=== PATIENT | male | born 1960 | race Caucasian/White ===

== ENCOUNTER 2019-12-30 16:15 | Emergency (ER) | payer MEDICAID, OTHER ==
[~2019-12-30] VITALS: Ht 180.3 cm; Wt 113.4 kg
[2019-12-30 18:39] VITALS: BP 127/79
[2019-12-30 19:25] LABS: Urine Bacteria NONE SEEN /hpf (None Seen); Urine Blood Negative /uL (Negative); Urine Mucus FEW (None Seen); Urine Specific Gravity 1.028 (1.001-1.035); Urine Sperm PRESENT /hpf (None Seen); Urine WBC <1 /hpf (0 - 3)
[2019-12-30 19:38] LABS: Basophils # (auto) 0 uL; Basophils % (auto) 0.3 % (0.0-2.0); Eosinophils # (auto) 0.1 uL; Eosinophils % (auto) 0.6 % (0.0-7.0); Hematocrit 43.9 % (41.0-53.0); Hemoglobin 14.9 g/dL (13.5-17.5); Lymphocytes # (auto) 1.7 uL; Lymphocytes % (auto) 12.8 % (10.0-50.0); Mean Corpuscular Hemoglobin 27.8 pg (28.0-32.0); Mean Corpuscular Hgb Conc. 33.9 g/dL (32.0-36.0); Mean Corpuscular Volume 82.2 fL (80.0-100.0); Monocytes # (auto) 1.5 uL; Monocytes % (auto) 11.3 % (0.0-12.0); Nucleated Red Blood Cells % 0.1 %; Platelet Count (auto) 389 10^3/uL (140-450); Red Blood Cells 5.35 10^6/uL (4.5-5.90); Red Cell Distribution Width 14.3 % (11.8-14.3); White Blood Cell 13.3 10^3/uL (4.4-10.8)
[2019-12-30] MEDS ORDERED: ONDANSETRON ODT 4 MG TAB PO ONE (19:45)
[2019-12-30] MEDS ORDERED: HYDROcodone-ACET 5/325MG TAB PO ONE (19:45)
[2019-12-30 20:03] LABS: Albumin 3.6 g/dL (3.4-5.0); Calcium 9.6 mg/dL (8.5-10.1)
[2019-12-30 20:06] LABS: BUN/Creatinine Ratio 17.5; Bilirubin, Total 0.7 mg/dL (0.2-1.0); Total Protein 8.9 g/dL (6.4-8.2); Uric Acid 9.4 mg/dL (3.5-7.2)
== END 2019-12-30 20:19 | disposition home or self-care (01) ==
LOC: ER 16:28
DX: S83.242A Other tear of medial meniscus, current injury, left knee, initial encounter (principal); S83.241A Other tear of medial meniscus, current injury, right knee, initial encounter; M10.9 Gout, unspecified; M54.42 Lumbago with sciatica, left side; M54.41 Lumbago with sciatica, right side; X58.XXXA Exposure to other specified factors, initial encounter; Y93.89 Activity, other specified; Y92.89 Other specified places as the place of occurrence of the external cause; Y99.8 Other external cause status
CPT/HCPCS: 36415; 80053; 81001; 84550; 85025; 99283; Q0162

== ENCOUNTER 2020-02-23 11:24 | Emergency (ER) | payer MEDICAID, OTHER ==
[~2020-02-23] VITALS: Ht 180.3 cm; Wt 108.9 kg
[2020-02-23 11:28] VITALS: BP 131/94
[2020-02-23] MEDS ORDERED: HYDROcodone-ACET 7.5/325MG TAB PO ONE (12:00)
== END 2020-02-23 13:16 | disposition home or self-care (01) ==
LOC: ER 11:24
DX: S16.1XXA Strain of muscle, fascia and tendon at neck level, initial encounter (principal); S39.012A Strain of muscle, fascia and tendon of lower back, initial encounter; V43.62XA Car passenger injured in collision with other type car in traffic accident, initial encounter; Y93.89 Activity, other specified; Y92.410 Unspecified street and highway as the place of occurrence of the external cause; Y99.8 Other external cause status
CPT/HCPCS: 72040; 72100

== ENCOUNTER 2023-12-16 17:59 | Inpatient (IN) | payer MEDICAID ==
[~2023-12-16] VITALS: Ht 182.9 cm; Wt 130.0 kg
[2023-12-16] MEDS ORDERED: LORazepam 2MG/ML-1ML VIAL IV ONE (18:15)
[2023-12-16] MEDS ORDERED: ONDANSETRON HCL 4 MG/2 ML VIAL IV ONE (18:15)
[2023-12-16 18:20] VITALS: PULSE 71; RESP 18; O2SAT 99
[2023-12-16] MEDS ORDERED: SODIUM CHLORIDE 0.9% 1,000 ML IV ONE ×3 (18:30→19:45)
[2023-12-16] MEDS ORDERED: NOREPINEPHRINE 8 MG/250ML KIT 250 ML IV ONE (18:50)
[2023-12-16] MEDS: NOREPINEPHRINE 8 MG/250ML KIT 250 ML IV SCH (18:56)
[2023-12-16] MEDS ORDERED: LIDOCAINE 4MG/ML IV SOLN 500 ML IV SCH (19:00)
[2023-12-16 19:04] LABS: Basophils # (auto) 0.1 10 ^3/uL (0-0.2); Basophils % (auto) 1.1 % (0.0-2.0); Eosinophils # (auto) 0.3 10 ^3/uL (0-0.8); Eosinophils % (auto) 2.7 % (0.0-7.0); Hematocrit 50.4 % (41.0-53.0); Hemoglobin 16.9 g/dL (13.5-17.5); Lymphocytes # (auto) 2.6 10 ^3/uL (0.4-5.4); Lymphocytes % (auto) 26.8 % (10.0-50.0); Mean Corpuscular Hemoglobin 28.4 pg (28.0-32.0); Mean Corpuscular Hgb Conc. 33.5 g/dL (32.0-36.0); Mean Corpuscular Volume 84.7 fL (80.0-100.0); Monocytes % (auto) 10.5 % (0.0-12.0); Neutrophils # (auto) 5.7 10 ^3/uL (1.6-8.6); Neutrophils % (auto) 58.9 % (37.0-80.0); Nucleated Red Blood Cells % 0.3 %; Red Blood Cells 5.95 10^6/uL (4.5-5.90); Red Cell Distribution Width 13.8 % (11.8-14.3); White Blood Cell 9.7 10^3/uL (4.4-10.8)
[2023-12-16 19:11] LABS: Alanine Aminotransferase 32 U/L (7-40); Albumin 4.4 g/dL (3.2-4.8); Alkaline Phosphatase 67 U/L (46-116); Anion Gap 9 (5-15); Aspartate Aminotransferase 33 U/L (13-40); BUN/Creatinine Ratio 11.7 (10.0-20.0); Blood Urea Nitrogen 14 mg/dL (9-23); Calcium 9.9 mg/dL (8.5-10.1); Carbon Dioxide 22 mmol/L (20-30); Chloride 108 mmol/L (98-107); Glucose 99 mg/dL (74-106); Potassium 4.6 mmol/L (3.5-5.1); Sodium 139 mmol/L (136-145)
[2023-12-16 19:12] LABS: Bilirubin, Total 0.7 mg/dL (0.2-1.0); Total Protein 6.6 g/dL (5.7-8.2)
[2023-12-16 19:18] LABS: INR 1.06 (0.9-1.15); Prothrombin Time 11.1 sec (9.3-11.8)
[2023-12-16 19:21] LABS: Lactic Acid w/Reflex 3.8 mmol/L (0.4-2.0)
[2023-12-16 19:23] LABS: Lipase 28 U/L (12-53)
[2023-12-16] MEDS ORDERED: ENOXAPARIN SOD 120 MG/0.8 ML SYRINGE SC ONE (19:45)
[2023-12-16] MEDS ORDERED: NITROGLYCERIN 0.4 MG SL TAB SL PRN (20:30)
[2023-12-16] MEDS ORDERED: ONDANSETRON HCL 4 MG/2 ML VIAL IV PRN (20:30)
[2023-12-16] MEDS ORDERED: MORPHINE SULFATE INJ 2 MG/ml SYRG IV PRN (20:30)
[2023-12-16] MEDS ORDERED: ALBUTEROL SULF 2.5 MG/0.5ML(0.5%) NEB SOLN NEB ONE (21:30)
[2023-12-16] MEDS ORDERED: AMIODARONE BOLUS KIT 100 ML IV ONE (21:30)
[2023-12-16] MEDS ORDERED: AMIODARONE 450mg/250ml AE 250 ML IV SCH (21:45)
[2023-12-16] MEDS ORDERED: LEVALBUTEROL HCL 1.25 MG/3 ML NEB ONE (21:53)
[2023-12-16 22:00] VITALS: PULSE 148; RESP 35; O2SAT 89
[2023-12-16] MEDS ORDERED: ATORVASTATIN 20 MG TAB PO SCH (22:00)
[2023-12-16] MEDS ORDERED: LEVALBUTEROL HCL 1.25 MG/3 ML NEB NEB ONE (22:30)
[2023-12-16] MEDS ORDERED: dilTIAZem 25 MG/5 ML VIAL IV ONE (22:30)
[2023-12-16 22:53] LABS: Base Excess -13.3 mmol/L (-2.0-2.0)
[2023-12-16] MEDS ORDERED: METOPROLOL TARTRATE 1MG/1ML-5ML VIAL IV ONE (23:00)
[2023-12-16] MEDS ORDERED: LIDOCAINE HCL 100 MG/5ML (2%) SYRG INJ IV ONE (23:00)
[2023-12-16] MEDS: MAGNESIUM SULFATE 1GM/100ML 100 ML IV SCH (23:15)
[2023-12-17] VITALS (55 sets, daily range): BP systolic 31–173; BP diastolic 24–86; PULSE 98–149; RESP 16–29; TEMP 98.8–103.5; O2SAT 49–100
[2023-12-17] MEDS ORDERED: ETOMIDATE (2MG/ML) 20ML VIAL IV ONE ×2 (00:01)
[2023-12-17] MEDS ORDERED: SUCCINYLCHOLINE CHLORIDE 20 MG/ML 10ML VIAL IV ONE ×2 (00:01)
[2023-12-17] MEDS ORDERED: IOHEXOL 350 MG/ML 100ML IJ ONE (00:06)
[2023-12-17 00:10] LABS: COVID19 ANTIGEN SOFIA FIA NEGATIVE (NEGATIVE); Rapid Influenza A Negative (Negative); Rapid Influenza B Negative (Negative)
[2023-12-17] MEDS ORDERED: MIDAZOLAM DRIP 50 mg/50mL 50 ML IV ONE ×2 (00:13→15:06)
[2023-12-17] MEDS: MIDAZOLAM DRIP 50 mg/50mL 50 ML IV SCH ×2 (00:15→15:55)
[2023-12-17] MEDS: MAGNESIUM SULFATE 1GM/100ML 100 ML IV SCH (00:36)
[2023-12-17] MEDS ORDERED: VASOPRESSIN 20 UNIT/ML ONE (00:51)
[2023-12-17] MEDS ORDERED: fentaNYL Drip 2500mCg/250mlNS 250 ML IV ONE (00:53)
[2023-12-17] MEDS: fentaNYL Drip 2500mCg/250mlNS 250 ML IV SCH ×2 (00:57→15:55)
[2023-12-17] MEDS: cefTRIAXone 1GM/50ML D5W 50 ML IV SCH ×2 (01:16→10:48)
[2023-12-17 01:29] LABS: Urine Bacteria NONE SEEN /hpf (None Seen); Urine Blood Negative /uL (Negative); Urine Clarity Clear (Clear); Urine Color Yellow (Yellow); Urine Hyaline Cast FEW /lpf (0 - 2); Urine Protein, UAD 1+ (Negative); Urine Specific Gravity 1.041 (1.001-1.035); Urine Urobilinogen Normal (Negative); Urine WBC 2 /hpf (0 - 3); Urine pH 7.5 (5.0-8.0)
[2023-12-17 01:40] LABS: Amphetamine Screen, Urine Neg (NEGATIVE); Barbiturate Scree,Urine Neg (NEGATIVE); Benzodiazephine Screen, Urine Neg (NEGATIVE); Cannabinoid Screen, Urine Pos (NEGATIVE); Cocaine Screen, Urine Neg (NEGATIVE); Opiate Scree,Urine Neg (NEGATIVE); Phencyclidine Screen, Urine Neg (NEGATIVE)
[2023-12-17] MEDS ORDERED: FUROSEMIDE 40 MG/4 ML VIAL IV ONE (01:45)
[2023-12-17 02:53] LABS: Base Excess -16.8 mmol/L (-2.0-2.0)
[2023-12-17] MEDS ORDERED: EPINEPHrine HCL 250 ML IV ONE ×2 (03:49→12:33)
[2023-12-17] MEDS: AMIODARONE 450mg/250ml AE 250 ML IV SCH ×2 (04:12→17:30)
[2023-12-17] MEDS: VASOPRESSIN 20 UNITS in SODIUM CHL 0.9% 99 ML IV SCH ×3 (04:13→18:01)
[2023-12-17] MEDS ORDERED: EPINEPHrine HCL 250 ML IV SCH (04:15)
[2023-12-17 04:25] LABS: Base Excess -14.3 mmol/L (-2.0-2.0)
[2023-12-17] MEDS ORDERED: SODIUM BICARBONATE 8.4 % INJ 50ML VIAL IV ONE ×9 (04:30→19:36)
[2023-12-17 05:22] LABS: Basophils # (auto) 0.1 10 ^3/uL (0-0.2); Basophils % (auto) 0.5 % (0.0-2.0); Eosinophils # (auto) 0.1 10 ^3/uL (0-0.8); Eosinophils % (auto) 0.4 % (0.0-7.0); Hematocrit 52.4 % (41.0-53.0); Hemoglobin 16.9 g/dL (13.5-17.5); Lymphocytes # (auto) 1.7 10 ^3/uL (0.4-5.4); Lymphocytes % (auto) 7.5 % (10.0-50.0); Mean Corpuscular Hemoglobin 28.3 pg (28.0-32.0); Mean Corpuscular Hgb Conc. 32.2 g/dL (32.0-36.0); Mean Corpuscular Volume 87.9 fL (80.0-100.0); Monocytes % (auto) 8.4 % (0.0-12.0); Neutrophils # (auto) 19.3 10 ^3/uL (1.6-8.6); Neutrophils % (auto) 83.2 % (37.0-80.0); Nucleated Red Blood Cells % 0.2 %; Red Blood Cells 5.97 10^6/uL (4.5-5.90); Red Cell Distribution Width 14.4 % (11.8-14.3); White Blood Cell 23.2 10^3/uL (4.4-10.8)
[2023-12-17 05:49] LABS: Albumin 3.7 g/dL (3.2-4.8); Alkaline Phosphatase 69 U/L (46-116); Anion Gap 15 (5-15); BUN/Creatinine Ratio 7.5 (10.0-20.0); Blood Urea Nitrogen 18 mg/dL (9-23); Calcium 8.8 mg/dL (8.5-10.1); Carbon Dioxide 21 mmol/L (20-30); Chloride 105 mmol/L (98-107); Potassium 3.8 mmol/L (3.5-5.1); Sodium 141 mmol/L (136-145)
[2023-12-17 05:50] LABS: Bilirubin, Total 0.8 mg/dL (0.2-1.0); Total Protein 6.3 g/dL (5.7-8.2)
[2023-12-17 06:00] LABS: Aspartate Aminotransferase 1596 U/L (13-40)
[2023-12-17 06:31] LABS: Alanine Aminotransferase 1703 U/L (7-40); Glucose 307 mg/dL (74-106)
[2023-12-17] MEDS: SODIUM BICARBONATE 50ML VIAL 100 ML in SOD CHL 0.45% 1,000 ML IV SCH ×2 (06:33→19:55)
[2023-12-17] MEDS ORDERED: VANCOMYCIN PER PHARMACY 0 MG IV SCH (06:45)
[2023-12-17] MEDS ORDERED: VANCOMYCIN 1GM/200ML 200 ML IV SCH (07:00)
[2023-12-17] MEDS ORDERED: FUROSEMIDE 20 MG/2 ML VIAL IV SCH (07:00)
[2023-12-17] MEDS ORDERED: ACETAMINOPHEN 650 MG RECT SUPP PR PRN (08:30)
[2023-12-17] MEDS: DOBUTamine 1000MCG/ML 250 ML IV SCH ×3 (08:50→22:38)
[2023-12-17] MEDS ORDERED: AZITHROMYCIN 500MG/ 250ML 250 ML IV SCH (10:00)
[2023-12-17] MEDS ORDERED: ENOXAPARIN SOD 40 MG/0.4 ML SYRINGE SC SCH (10:00)
[2023-12-17] MEDS ORDERED: ASPirin 81 mg TAB PO SCH (10:00)
[2023-12-17] MEDS ORDERED: HEPARIN DRIP/D5W 100UNITS/ML 250 ML IV SCH ×2 (11:00→14:30)
[2023-12-17] MEDS ORDERED: HEPARIN SODIUM (PORCINE) 5000 UNITS/ML 1ML VIAL IV ONE ×3 (11:00→18:15)
[2023-12-17] MEDS ORDERED: ASPirin 81 mg TAB PO ONE (11:00)
[2023-12-17] MEDS ORDERED: BUMETANIDE 2.5mg/10ml (0.25 mg/ml) INJ IV ONE (11:15)
[2023-12-17 11:24] LABS: Base Excess -10.2 mmol/L (-2.0-2.0)
[2023-12-17] MEDS ORDERED: DEXTROSE (50%) 50ML SYRG IV PRN (11:30)
[2023-12-17 11:46] LABS: Basophils # (auto) 0.1 10 ^3/uL (0-0.2); Basophils % (auto) 0.7 % (0.0-2.0); Eosinophils # (auto) 0 10 ^3/uL (0-0.8); Hematocrit 50.5 % (41.0-53.0); Hemoglobin 16.4 g/dL (13.5-17.5); Lymphocytes # (auto) 1.2 10 ^3/uL (0.4-5.4); Lymphocytes % (auto) 7.3 % (10.0-50.0); Mean Corpuscular Hemoglobin 28.5 pg (28.0-32.0); Mean Corpuscular Hgb Conc. 32.4 g/dL (32.0-36.0); Mean Corpuscular Volume 87.9 fL (80.0-100.0); Monocytes # (auto) 0.9 10 ^3/uL (0-1.3); Monocytes % (auto) 5.4 % (0.0-12.0); Neutrophils # (auto) 14.5 10 ^3/uL (1.6-8.6); Neutrophils % (auto) 86.6 % (37.0-80.0); Nucleated Red Blood Cells % 0.1 %; Red Blood Cells 5.75 10^6/uL (4.5-5.90); Red Cell Distribution Width 14.2 % (11.8-14.3); White Blood Cell 16.8 10^3/uL (4.4-10.8)
[2023-12-17] MEDS: PHENYLEPHRINE INJ 80 MG in SODIUM CHL 0.9% 242 ML IV SCH (11:53)
[2023-12-17] MEDS ORDERED: IODIXANOL 320MG/ML 100ML BTL IV ONE ×3 (11:59→13:47)
[2023-12-17] MEDS ORDERED: LIDOCAINE 2%HCL (LOCAL ANESTH.) INJ 20ML MDV ONE (11:59)
[2023-12-17 12:00] LABS: INR 1.22 (0.9-1.15); Partial Thromboplastin Time 38.9 SEC (24.5-34.5); Prothrombin Time 12.6 sec (9.3-11.8)
[2023-12-17] MEDS ORDERED: SODIUM CHL 0.9% 50 ML ONE ×2 (12:17→13:09)
[2023-12-17] MEDS ORDERED: ANGIOMAX 250 MG VIAL IV ONE ×2 (12:17→13:09)
[2023-12-17 12:38] LABS: Triglycerides 589 mg/dL (< 150)
[2023-12-17 12:40] LABS: Cholesterol 263 mg/dL (< 200); HDL Cholesterol 24 mg/dL (40-59)
[2023-12-17 12:43] LABS: Base Excess -10.6 mmol/L (-2.0-2.0)
[2023-12-17] MEDS ORDERED: D5W 5% 250 ML IV ONE (12:43)
[2023-12-17 13:32] LABS: Magnesium 2.7 mg/dL (1.6-2.6)
[2023-12-17] MEDS ORDERED: DOBUTamine 1000MCG/ML 250 ML IV ONE ×2 (13:45→15:06)
[2023-12-17] MEDS ORDERED: AMIODARONE HCL (50 MG/ ML) 3 ML VIAL IV ONE (13:57)
[2023-12-17] MEDS ORDERED: ASPirin 325 MG TAB ONE (14:16)
[2023-12-17] MEDS ORDERED: CLOPIDOGREL 300 MG TAB ONE (14:16)
[2023-12-17] MEDS ORDERED: NOREPINEPHRINE 8 MG/250ML KIT 250 ML IV ONE (15:08)
[2023-12-17] MEDS: NOREPINEPHRINE 8 MG/250ML KIT 250 ML IV SCH (15:59)
[2023-12-17 16:05] LABS: Basophils # (auto) 0.1 10 ^3/uL (0-0.2); Basophils % (auto) 0.5 % (0.0-2.0); Eosinophils # (auto) 0 10 ^3/uL (0-0.8); Hematocrit 45.2 % (41.0-53.0); Hemoglobin 14.9 g/dL (13.5-17.5); Lymphocytes # (auto) 1.2 10 ^3/uL (0.4-5.4); Lymphocytes % (auto) 7.3 % (10.0-50.0); Mean Corpuscular Hemoglobin 28.4 pg (28.0-32.0); Mean Corpuscular Hgb Conc. 32.9 g/dL (32.0-36.0); Mean Corpuscular Volume 86.4 fL (80.0-100.0); Monocytes # (auto) 0.8 10 ^3/uL (0-1.3); Monocytes % (auto) 5.2 % (0.0-12.0); Neutrophils # (auto) 13.9 10 ^3/uL (1.6-8.6); Red Blood Cells 5.23 10^6/uL (4.5-5.90); Red Cell Distribution Width 14.2 % (11.8-14.3)
[2023-12-17] MEDS ORDERED: SODIUM BICARBONATE 50ML VIAL 50 ML in D5W 5% 1,000 ML IV SCH (16:15)
[2023-12-17 16:28] LABS: INR 1.96 (0.9-1.15); Prothrombin Time 19.7 sec (9.3-11.8)
[2023-12-17] MEDS: NOREPINEPHRINE BITARTRATE 32 MG in SODIUM CHL 0.9% 218 ML IV SCH (16:30)
[2023-12-17 16:32] LABS: Partial Thromboplastin Time 82.6 SEC (24.5-34.5)
[2023-12-17 16:37] LABS: Chloride 102 mmol/L (98-107); Sodium 138 mmol/L (136-145)
[2023-12-17 16:39] LABS: Anion Gap 15 (5-15); Carbon Dioxide 21 mmol/L (20-30)
[2023-12-17 16:40] LABS: Calcium 7.2 mg/dL (8.7-10.4)
[2023-12-17 16:45] LABS: Alkaline Phosphatase 48 U/L (46-116)
[2023-12-17 16:47] LABS: Albumin 3.2 g/dL (3.2-4.8); Aspartate Aminotransferase 5521 U/L (13-40); Bilirubin, Total 0.8 mg/dL (0.2-1.0); Total Protein 5.4 g/dL (5.7-8.2)
[2023-12-17 16:52] LABS: BUN/Creatinine Ratio 9.2 (10.0-20.0); Blood Urea Nitrogen 27 mg/dL (9-23); Potassium 3.3 mmol/L (3.5-5.1)
[2023-12-17 16:57] LABS: Glucose 414 mg/dL (74-106)
[2023-12-17] MEDS ORDERED: POTASSIUM CHL 20MEQ/100ML 100 ML IV ONE (17:15)
[2023-12-17 17:18] LABS: Alanine Aminotransferase 2507 U/L (7-40)
[2023-12-17 18:10] LABS: Base Excess -6.9 mmol/L (-2.0-2.0)
[2023-12-17] MEDS: FUROSEMIDE INJECTION 100 MG in SODIUM CHL 0.9% 100 ML IV SCH ×2 (18:23→23:37)
[2023-12-17] MEDS: ACCU-CHEK COMFORT CURVE STRIP VI SCH (18:23)
[2023-12-17] MEDS: InsuLIN REG 1unit/0.01ml Soln (100units/ml) SC SCH (18:24)
[2023-12-17] MEDS: EPINEPHrine HCL 250 ML IV SCH (18:30)
[2023-12-17 18:32] LABS: T3 Total 0.61 ng/mL (0.60-1.81)
[2023-12-17 18:45] LABS: Free T4 (Free Thyroxine) 0.69 ng/dL (0.89-1.76)
[2023-12-17] MEDS ORDERED: ACETAMINOPHEN 325 MG TAB PO PRN (18:45)
[2023-12-17] MEDS: DOPamine 3200MCG/ML 250 ML IV SCH (19:46)
[2023-12-17] MEDS ORDERED: D5W IV SCH (20:45)
[2023-12-17] MEDS ORDERED: SODIUM BICARBONATE IV SCH (20:45)
[2023-12-17] MEDS ORDERED: IBUPROFEN 100MG/5ML ORAL SUSP 100 MG/5 ML UD GT ONE (22:00)
[2023-12-17] MEDS ORDERED: ATORVASTATIN 20 MG TAB PO SCH (22:00)
[2023-12-17] MEDS ORDERED: IBUPROFEN 800 MG TAB PO ONE (22:03)
[2023-12-17] MEDS: DOXYCYCLINE 100MG/250ML 250 ML IV SCH (22:43)
[2023-12-18] VITALS (113 sets, daily range): BP systolic 31–98; BP diastolic 21–93; PULSE 55–140; RESP 16–29; TEMP 101.4–103.6; O2SAT 79–100
[2023-12-18] MEDS ORDERED: VANCOMYCIN 1GM/200ML 200 ML IV ONE
[2023-12-18 01:04] LABS: Base Excess -2.7 mmol/L (-2.0-2.0)
[2023-12-18 01:09] LABS: Anion Gap 15 (5-15); Carbon Dioxide 24 mmol/L (20-30); Chloride 101 mmol/L (98-107); Sodium 140 mmol/L (136-145)
[2023-12-18 01:10] LABS: Calcium 7.9 mg/dL (8.7-10.4)
[2023-12-18 01:14] LABS: INR 1.33 (0.9-1.15); Partial Thromboplastin Time 57.2 SEC (24.5-34.5); Prothrombin Time 13.7 sec (9.3-11.8)
[2023-12-18 01:15] LABS: Glucose 363 mg/dL (74-106); Magnesium 2.2 mg/dL (1.6-2.6)
[2023-12-18] MEDS: EPINEPHrine HCL 250 ML IV SCH ×3 (01:29→20:11)
[2023-12-18 01:30] LABS: BUN/Creatinine Ratio 6.1 (10.0-20.0); Blood Urea Nitrogen 23 mg/dL (9-23)
[2023-12-18] MEDS: ACCU-CHEK COMFORT CURVE STRIP VI SCH ×8 (01:35→23:58)
[2023-12-18] MEDS: InsuLIN REG 1unit/0.01ml Soln (100units/ml) SC SCH ×5 (01:37→20:20)
[2023-12-18] MEDS ORDERED: ALBUMIN 5% 250 ML IV ONE (02:30)
[2023-12-18] MEDS: PHENYLEPHRINE INJ 80 MG in SODIUM CHL 0.9% 242 ML IV SCH ×4 (02:33→23:28)
[2023-12-18] MEDS: DOBUTamine 1000MCG/ML 250 ML IV SCH ×4 (03:25→18:26)
[2023-12-18] MEDS: VASOPRESSIN 20 UNITS in SODIUM CHL 0.9% 99 ML IV SCH (03:25)
[2023-12-18] MEDS: MIDAZOLAM DRIP 50 mg/50mL 50 ML IV SCH ×5 (03:25→22:13)
[2023-12-18 04:40] LABS: Hematocrit 44.3 % (41.0-53.0); Hemoglobin 14.7 g/dL (13.5-17.5); Mean Corpuscular Hemoglobin 28.4 pg (28.0-32.0); Mean Corpuscular Hgb Conc. 33.3 g/dL (32.0-36.0); Mean Corpuscular Volume 85.3 fL (80.0-100.0); Red Blood Cells 5.19 10^6/uL (4.5-5.90); Red Cell Distribution Width 14.1 % (11.8-14.3); White Blood Cell 17.5 10^3/uL (4.4-10.8)
[2023-12-18 04:42] LABS: Basophils % (manual) 0 (0.0-2.0); Blast Cells 0; Eosinophils % (manual) 0 (0-7); Promyelocytes % 0; Reactive Lymphocytes 0
[2023-12-18 04:57] LABS: Band Neutrophils % (manual) 12; Lymphocytes % (manual) 6 (10.0-50.0); Metamyelocytes % 2; Monocytes % (manual) 7 (0-12); Myelocytes % 2; Platelet Estimate Adequate
[2023-12-18 06:10] LABS: Chloride 100 mmol/L (98-107)
[2023-12-18 06:13] LABS: Anion Gap 15 (5-15); Calcium 7.1 mg/dL (8.7-10.4); Carbon Dioxide 19 mmol/L (20-30)
[2023-12-18 06:18] LABS: Alkaline Phosphatase 36 U/L (46-116); Magnesium 2.1 mg/dL (1.6-2.6)
[2023-12-18 06:20] LABS: Bilirubin, Total 3.5 mg/dL (0.2-1.0); Total Protein 5.7 g/dL (5.7-8.2)
[2023-12-18 06:21] LABS: Albumin 3.5 g/dL (3.2-4.8); BUN/Creatinine Ratio 6.9 (10.0-20.0); Blood Urea Nitrogen 31 mg/dL (9-23)
[2023-12-18 06:22] LABS: Alanine Aminotransferase 2745 U/L (7-40); Aspartate Aminotransferase > 6000 U/L (13-40); Sodium 134 mmol/L (136-145)
[2023-12-18 06:25] LABS: Glucose 403 mg/dL (74-106)
[2023-12-18 06:26] LABS: Potassium 4.2 mmol/L (3.5-5.1)
[2023-12-18] MEDS: FUROSEMIDE INJECTION 100 MG in SODIUM CHL 0.9% 100 ML IV SCH ×3 (06:33→21:12)
[2023-12-18] MEDS: DOPamine 3200MCG/ML 250 ML IV SCH ×2 (06:38→18:03)
[2023-12-18] MEDS: fentaNYL Drip 2500mCg/250mlNS 250 ML IV SCH (06:44)
[2023-12-18] MEDS ORDERED: IBUPROFEN 600 MG TAB PO ONE (06:45)
[2023-12-18] MEDS: AMIODARONE 450mg/250ml AE 250 ML IV SCH (08:06)
[2023-12-18] MEDS: cefTRIAXone 1GM/50ML D5W 50 ML IV SCH (08:06)
[2023-12-18 08:19] LABS: INR 1.53 (0.9-1.15); Partial Thromboplastin Time 49.1 SEC (24.5-34.5); Prothrombin Time 15.6 sec (9.3-11.8)
[2023-12-18] MEDS ORDERED: DEXTROSE (50%) 50ML SYRG IV PRN ×2 (09:00→17:45)
[2023-12-18] MEDS: HEPARIN DRIP/D5W 100UNITS/ML 250 ML IV SCH ×2 (09:00→22:54)
[2023-12-18] MEDS: NOREPINEPHRINE BITARTRATE 32 MG in SODIUM CHL 0.9% 218 ML IV SCH (09:17)
[2023-12-18] MEDS: ASPirin 81 mg TAB PO SCH (09:48)
[2023-12-18] MEDS: CLOPIDOGREL BISULFATE 75 MG TAB PO SCH (09:48)
[2023-12-18 10:02] LABS: Lactic Acid w/Reflex 5.6 mmol/L (0.4-2.0)
[2023-12-18] MEDS: DOXYCYCLINE 100MG/250ML 250 ML IV SCH (12:04)
[2023-12-18] MEDS: PANTOPRAZOLE 40 MG/10 ML VIAL INJ IV SCH (12:11)
[2023-12-18 17:03] LABS: INR 1.86 (0.9-1.15); Partial Thromboplastin Time 62.6 SEC (24.5-34.5); Prothrombin Time 18.8 sec (9.3-11.8)
[2023-12-18] MEDS ORDERED: SODIUM BICARBONATE 8.4% INJ 50ML SYRINGE IV ONE ×2 (21:38)
[2023-12-18] MEDS ORDERED: LIDOCAINE 4MG/ML IV SOLN 500ML BAG IV ONE (21:38)
[2023-12-18 22:39] LABS: Base Excess -9.3 mmol/L (-2.0-2.0)
[2023-12-18] MEDS ORDERED: DOPamine 1600MCG/ML D5W 250 ML IV ONE (22:41)
[2023-12-18] MEDS: DOPamine 1600MCG/ML D5W 250 ML IV SCH (22:53)
[2023-12-18 23:00] LABS: INR 2.02 (0.9-1.15); Partial Thromboplastin Time 63.2 SEC (24.5-34.5); Prothrombin Time 20.3 sec (9.3-11.8)
[2023-12-19] VITALS (72 sets, daily range): BP systolic 36–79; BP diastolic 15–71; PULSE 42–71; RESP 0–28; TEMP 101.7–102.8; O2SAT 86–100
[2023-12-19] MEDS: InsuLIN REG 1unit/0.01ml Soln (100units/ml) SC SCH ×4 (00:01→12:27)
[2023-12-19] MEDS: DOXYCYCLINE 100MG/250ML 250 ML IV SCH ×2 (00:04→12:05)
[2023-12-19] MEDS ORDERED: SODIUM BICARBONATE 8.4 % INJ 50ML VIAL IV ONE (00:30)
[2023-12-19] MEDS: AMIODARONE 450mg/250ml AE 250 ML IV SCH ×2 (00:45→11:22)
[2023-12-19] MEDS: VASOPRESSIN 20 UNITS in SODIUM CHL 0.9% 99 ML IV SCH ×2 (00:49→08:20)
[2023-12-19] MEDS: NOREPINEPHRINE BITARTRATE 32 MG in SODIUM CHL 0.9% 218 ML IV SCH (01:00)
[2023-12-19] MEDS: DOPamine 1600MCG/ML D5W 250 ML IV SCH ×2 (01:14→04:00)
[2023-12-19] MEDS: EPINEPHrine HCL 250 ML IV SCH (02:08)
[2023-12-19] MEDS: MIDAZOLAM DRIP 50 mg/50mL 50 ML IV SCH ×4 (02:23→12:05)
[2023-12-19] MEDS: fentaNYL Drip 2500mCg/250mlNS 250 ML IV SCH (03:22)
[2023-12-19] MEDS: FUROSEMIDE INJECTION 100 MG in SODIUM CHL 0.9% 100 ML IV SCH ×3 (04:00→11:22)
[2023-12-19] MEDS: ACCU-CHEK COMFORT CURVE STRIP VI SCH ×3 (04:09→12:04)
[2023-12-19 04:22] LABS: Alkaline Phosphatase 39 U/L (46-116); Anion Gap 16 (5-15); Calcium 6.4 mg/dL (8.7-10.4); Carbon Dioxide 18 mmol/L (20-30); Chloride 95 mmol/L (98-107)
[2023-12-19 04:23] LABS: Bilirubin, Total 11.9 mg/dL (0.2-1.0)
[2023-12-19 04:28] LABS: Hematocrit 40.2 % (41.0-53.0); Hemoglobin 13.4 g/dL (13.5-17.5); Mean Corpuscular Hemoglobin 28.4 pg (28.0-32.0); Mean Corpuscular Hgb Conc. 33.3 g/dL (32.0-36.0); Mean Corpuscular Volume 85.3 fL (80.0-100.0); Red Blood Cells 4.71 10^6/uL (4.5-5.90); Red Cell Distribution Width 14.6 % (11.8-14.3)
[2023-12-19 04:29] LABS: INR 2.25 (0.9-1.15); Prothrombin Time 22.4 sec (9.3-11.8)
[2023-12-19 04:31] LABS: Partial Thromboplastin Time 82.7 SEC (24.5-34.5)
[2023-12-19 04:35] LABS: Glucose 295 mg/dL (74-106); Sodium 129 mmol/L (136-145)
[2023-12-19 04:44] LABS: BUN/Creatinine Ratio 6.9 (10.0-20.0); Potassium 4.8 mmol/L (3.5-5.1)
[2023-12-19] MEDS: DOBUTamine 1000MCG/ML 250 ML IV SCH (04:59)
[2023-12-19 05:12] LABS: Alanine Aminotransferase 5364 U/L (7-40); Blood Urea Nitrogen 47 mg/dL (9-23)
[2023-12-19 05:41] LABS: Aspartate Aminotransferase > 6000 U/L (13-40)
[2023-12-19] MEDS: PHENYLEPHRINE INJ 80 MG in SODIUM CHL 0.9% 242 ML IV SCH (06:17)
[2023-12-19] MEDS: DOPamine 3200MCG/ML 250 ML IV SCH ×2 (06:44→12:04)
[2023-12-19 07:41] LABS: Basophils % (manual) 0 (0.0-2.0); Eosinophils % (manual) 0 (0-7); Metamyelocytes % 0; Myelocytes % 0; Promyelocytes % 0; Reactive Lymphocytes 0
[2023-12-19 08:17] LABS: Band Neutrophils % (manual) 15; Blast Cells 1; Lymphocytes % (manual) 14 (10.0-50.0); Monocytes % (manual) 7 (0-12); Platelet Estimate Decreased
[2023-12-19] MEDS: cefTRIAXone 1GM/50ML D5W 50 ML IV SCH (09:10)
[2023-12-19] MEDS: PANTOPRAZOLE 40 MG/10 ML VIAL INJ IV SCH (09:10)
[2023-12-19] MEDS: ASPirin 81 mg TAB PO SCH (09:10)
[2023-12-19] MEDS: CLOPIDOGREL BISULFATE 75 MG TAB PO SCH (09:11)
[2023-12-19 09:16] LABS: Base Excess -11.7 mmol/L (-2.0-2.0)
[2023-12-19 11:21] LABS: INR 2.34 (0.9-1.15); Prothrombin Time 23.2 sec (9.3-11.8)
[2023-12-19] MEDS ORDERED: MORPHINE SULFATE INJ 2 MG/ml SYRG IV PRN (13:30)
[2023-12-19] MEDS ORDERED: LORazepam 2MG/ML-1ML VIAL IV PRN (13:30)
== END 2023-12-19 19:03 | DRG 178 ==
LOC: ER 17:59 → ICU WEST 20:28 → TELE 20:28 → ICU WEST 12-17 15:15
PROVIDERS: ADMIT Nurse Practitioner; ATTEND Nurse Practitioner Acute Care
PROC: 5A12012 Performance of Cardiac Output, Single, Manual (ICD-10-PCS; principal; 2023-12-17)
PROC: 02HA3RZ Insertion of Short-term External Heart Assist System into Heart, Percutaneous Approach (ICD-10-PCS; 2023-12-17)
PROC: 5A1945Z Respiratory Ventilation, 24-96 Consecutive Hours (ICD-10-PCS; 2023-12-17)
PROC: 03HY32Z Insertion of Monitoring Device into Upper Artery, Percutaneous Approach (ICD-10-PCS; 2023-12-17)
PROC: 05HM33Z Insertion of Infusion Device into Right Internal Jugular Vein, Percutaneous Approach (ICD-10-PCS; 2023-12-17)
PROC: 0BH17EZ Insertion of Endotracheal Airway into Trachea, Via Natural or Artificial Opening (ICD-10-PCS; 2023-12-17)
PROC: 4A023N8 Measurement of Cardiac Sampling and Pressure, Bilateral, Percutaneous Approach (ICD-10-PCS; 2023-12-17)
PROC: B211YZZ Fluoroscopy of Multiple Coronary Arteries using Other Contrast (ICD-10-PCS; 2023-12-17)
PROC: B215YZZ Fluoroscopy of Left Heart using Other Contrast (ICD-10-PCS; 2023-12-17)
PROC: 5A0221D Assistance with Cardiac Output using Impeller Pump, Continuous (ICD-10-PCS; 2023-12-17)
PROC: 02723GZ Dilation of Coronary Artery, Three Arteries with Four or More Intraluminal Devices, Percutaneous Approach (ICD-10-PCS; 2023-12-17)
PROC: B241ZZ3 Ultrasonography of Multiple Coronary Arteries, Intravascular (ICD-10-PCS; 2023-12-17)
PROC: 02C23ZZ Extirpation of Matter from Coronary Artery, Three Arteries, Percutaneous Approach (ICD-10-PCS; 2023-12-17)
DX: I21.4 Non-ST elevation (NSTEMI) myocardial infarction (principal); J96.01 Acute respiratory failure with hypoxia; K72.00 Acute and subacute hepatic failure without coma; N17.0 Acute kidney failure with tubular necrosis; I46.9 Cardiac arrest, cause unspecified; G93.41 Metabolic encephalopathy; K92.2 Gastrointestinal hemorrhage, unspecified; R65.10 Systemic inflammatory response syndrome (SIRS) of non-infectious origin without acute organ dysfunction; D69.6 Thrombocytopenia, unspecified; Z20.822 Contact with and (suspected) exposure to COVID-19; Z66 Do not resuscitate; I50.9 Heart failure, unspecified; I47.20 Ventricular tachycardia, unspecified; E87.20 Acidosis, unspecified; E66.9 Obesity, unspecified; E11.22 Type 2 diabetes mellitus with diabetic chronic kidney disease; I25.10 Atherosclerotic heart disease of native coronary artery without angina pectoris; F41.9 Anxiety disorder, unspecified; M10.9 Gout, unspecified; F17.210 Nicotine dependence, cigarettes, uncomplicated; R31.9 Hematuria, unspecified; E78.5 Hyperlipidemia, unspecified; I25.5 Ischemic cardiomyopathy; I42.0 Dilated cardiomyopathy; I13.0 Hypertensive heart and chronic kidney disease with heart failure and stage 1 through stage 4 chronic kidney disease, or unspecified chronic kidney disease; N18.9 Chronic kidney disease, unspecified; Z68.38 Body mass index [BMI] 38.0-38.9, adult
CPT/HCPCS: 33990; 36415; 36600; 70450; 71045; 71260; 74177; 80048; 80053; 80061; 80307; 81001; 82805; 82962; 83036; 83605; 83690; 83735; 83880; 84439; 84443; 84480; 84484; 85007; 85025; 85027; 85379; 85610; 85730; 87040; 87070; 87081; 87205; 87426; 87804; 92929; 92941; 92950; 92973; 92978; 93005; 93306; 93460; 93926; 94002; 94003; 94640; 99152; 99291; C1725; C1751; C1874; C1887; C9113; G0378; J0171; J0330; J1265; J2250; J2405; J3480; J3490; J7060; Q9967